=== PATIENT | female | born 1955 | race Caucasian/White ===

== ENCOUNTER → 2016-10-08 | Day surgery (SDC) | payer OTHER ==
[2016-09-21 15:03] VITALS: BMI 34.0
--- NOTE | 2016-09-21 15:40 | PAT Medication Instructions ---
Service Date Sep 21, 2016. Current Home Medication List Acetaminophen Tab (Tylenol), 650 MG PO PRN Aspirin Enteric Coated (Ecotrin Or Generic *), 81 MG PO HS Atorvastatin (Lipitor), 40 MG PO QPM Citalopram (Celexa *), 20 MG PO QAM Diphenhydramine Hcl (Benadryl *), 25 MG PO Q4HR PRN Hydrochlorothiazide (Hctz), 12.5 4XWK Isosorbide Mononitrate Ext Rel (Imdur Ext Rel), 30 MG PO QAM Loratadine (Claritin), 10 MG PO PRN Lorazepam (Ativan *), 0.5 MG PO Q4HR PRN Losartan Potassium (Cozaar *), 100 MG PO QAM Meloxicam (Mobic), 15 MG PO QAM Metoprolol Tartrate (Metoprolol), 25 MG PO BID Nitroglycerin (Nitrostat), 0.4 MG UT PRN Pantoprazole (Protonix), 40 MG PO QAM Warfarin Sod (Jantoven), 10 MG PO 3XWEEK Warfarin Sod (Jantoven), 5 MG PO 4X WEEK Medication Instructions For Your Scheduled Surgery Nitroglycerin (Nitrostat), 0.4 MG UT PRN (if needed) Warfarin Sod (Jantoven), (patient will get instructions from [facility]) - Hold the following medications 7-10 days prior to surgery per surgeon instructions: Meloxicam (Mobic), 15 MG PO QAM - Hold the following medications the morning of surgery: Losartan Potassium (Cozaar *), 100 MG PO QAM Loratadine (Claritin), 10 MG PO PRN Hydrochlorothiazide (Hctz), 12.5 4XWK Diphenhydramine Hcl (Benadryl *), 25 MG PO Q4HR PRN - Take the following medications the morning of surgery with a sip of water: Pantoprazole (Protonix), 40 MG PO QAM Metoprolol Tartrate (Metoprolol), 25 MG PO BID Lorazepam (Ativan *), 0.5 MG PO Q4HR PRN Isosorbide Mononitrate Ext Rel (Imdur Ext Rel), 30 MG PO QAM Acetaminophen Tab (Tylenol), 650 MG PO PRN (if needed) Citalopram (Celexa *), 20 MG PO QAM - Take the following medications as scheduled the night before surgery: Metoprolol Tartrate (Metoprolol), 25 MG PO BID Lorazepam (Ativan *), 0.5 MG PO Q4HR PRN Acetaminophen Tab (Tylenol), 650 MG PO PRN Diphenhydramine Hcl (Benadryl *), 25 MG PO Q4HR PRN Atorvastatin (Lipitor), 40 MG PO QPM Aspirin Enteric Coated (Ecotrin Or Generic *), 81 MG PO HS If you have any questions please call us at [phone] or [phone] ( Tami) or [phone]
[2016-09-21 16:01] LABS: BASO % 0.5 %; BASO ABS # 0.02 K/uL (0-0.2); COMPLETE YES; EOS % 1.6 %; IG% 0.3 %; LYMPH % 31.2 %; LYMPH ABS # 1.19 K/uL (1.2-3.4); MEAN CELL VOLUME 91.1 fL (80-100); MEAN CORPUSCULAR HEMOGLOBIN 30.5 pg (25-34); MEAN CORPUSCULAR HGB CONC 33.4 g/dl (32-36); MEAN PLATELET VOLUME 11.8 fL (7.4-10.4); MONO % 9.9 %; NEUT % 56.5 %; PLATELET COUNT 226 K/uL (130-400); RED BLOOD COUNT 4.17 M/uL (4.2-5.4); WHITE BLOOD COUNT 3.82 K/uL (4.8-10.8)
[2016-09-21 16:20] LABS: BUN/CREATININE RATIO 20.9 (10-20); CALCIUM 9.1 mg/dl (8.5-10.1); CREATININE 0.77 mg/dl (0.60-1.20); INR 1.9 (0.9-1.1); PARTIAL THROMBOPLASTIN RATIO 1.2; POTASSIUM 4.1 mmol/L (3.5-5.1); PROTHROMBIN TIME (PATIENT) 21.1 SECONDS (9.0-12.0)
--- NOTE | 2016-10-07 14:15 | HISTORY & PHYSICAL EXAMINATION ---
DATE OF ADMISSION: 10/08/2016 CHIEF COMPLAINT: Lateral meniscal tear of the right knee. HISTORY OF PRESENT ILLNESS: Viola is a 61-year-old female who has been dealing with a chronic right knee pain. MRI shows some osteoarthritis as well as a lateral meniscal tear. After failing extensive conservative treatment including injections and physical therapy, she elected to proceed with arthroscopy. She understands all the risks, benefits, alternatives to the procedure and has elected to proceed. PAST MEDICAL HISTORY: Significant for heart disease, hyperlipidemia, and hypertension. MEDICATIONS: Include metoprolol, Celexa, isosorbide, Coumadin, Protonix, losartan, Mobic, hydrochlorothiazide, atorvastatin, nitroglycerin, and a baby aspirin daily. PAST SURGICAL HISTORY: Significant for bilateral shoulder arthroscopies, hysterectomy, hernia repair, and open heart surgery. ALLERGIES: MACROBID. FAMILY HISTORY: Noncontributory. SOCIAL HISTORY: She is , rarely drinks, and is moderately active. REVIEW OF SYSTEMS: She complains of right knee pain. All other pertinent review of systems is negative. PHYSICAL EXAMINATION: GENERAL: She is awake, alert and oriented x3. She is in no apparent distress. She is very pleasant. HEENT: Pupils equal, round and reactive to light. Extraocular motion intact. Oral mucosa is pink and moist. HEART: Regular rate per radial pulse. LUNGS: Nena symmetrically bilaterally with no audible breath sounds. ABDOMEN: Soft, nontender, nondistended. MUSCULOSKELETAL: On physical examination of the right knee, she has good flexion from 0-135 degrees. She has no cruciate or collateral ligament instability. She has tenderness to palpation over the lateral joint line, very mild tenderness over the medial joint line, and painless range of motion of her hip. IMAGING DATA: MRI of the right knee shows a mild lateral compartmental arthritis as well as a tear of the anterior horn of the lateral meniscus. IMPRESSION: Lateral meniscal tear of the right knee. PLAN: We will proceed with a right knee arthroscopy. Postoperatively, she will be placed in a compressive dressing, allowed to be weightbearing as tolerated and discharged to home on oral pain medications.
[~2016-10-08] VITALS: Ht 165.1 cm; Wt 89.0 kg
[~2016-10-08] MED LIST: ACET325T96 PO; ACETAMINOPHEN 500 MG TAB PO SCH; ASPEC81 PO; ATOR-24 PO; ATROPINE SULFATE 0.1 MG/ML 5ML SYR IV PRN; ATV5 PO; BND25X PO; CEFAZOLIN 2000 MG/60 ML D5W 60 ML IV SCH; CLR10 PO; CLX20 PO; CZR50 PO; DEXAMETHASONE SOD INJ 4 MG/ML VIAL ONE; EpHEDrine SULFATE INJ 50 MG/ML AMP ONE; EpINEphrine INJ 1MG/ML AMP 1 MG/ML AMP ONE; FENTANYL CITRATE INJ 50 MCG/1 ML 2 ML VIAL IV PRN; FENTANYL CITRATE INJ 50 MCG/1 ML 2 ML VIAL ONE; HYDR-5688 PO; HYDR12.56; HYDROCODONE/ACETAMOPHEN 5/325MG TAB PO PRN; HYDROmorphone INJ 2 MG/ML SYR/VIAL ONE; ISOS30TA35 PO; KETOROLAC TROMETHAMINE 30 MG/ML VIAL IV. PRN; KETOROLAC TROMETHAMINE 30 MG/ML VIAL ONE; LABETALOL HCL IV 5 MG/ML 20ML IV PRN; LACTATED RINGER'S 1000ML 1,000 ML IV SCH; LACTATED RINGER'S 1000ML IV SCH; LIDOCAINE HCL 2% 2 ML VIAL (20MG/ML) ONE; MELO7.5T5 PO; METO25TA31 PO; MIDAZOLAM HCL 1 MG/ML 2ML VIAL ONE; NTRGSL/4 UT; ONDANSETRON INJ 2 MG/ML 2 ML VIAL IV PRN; ONDANSETRON INJ 2 MG/ML 2 ML VIAL ONE; PANT40TA PO; PROPOFOL IV EMULSION 10 MG/ML 20 ML VIAL IV ONE; SODIUM CHLORIDE 0.9% 1000ML 1,000 ML IV SCH; WARF10TA4 PO; WARF5TAB7 PO
[2016-10-08 05:39] VITALS: BP 109/66; PULSE 57; TEMP 36.6; O2SAT 94; Ht 165.1 cm; Wt 89.0 kg
[2016-10-08 06:19] LABS: PROTHROMBIN TIME (PATIENT) 10.6 SECONDS (9.0-12.0)
--- NOTE | 2016-10-08 06:36 | History & Physical Bridge Note ---
H&P Re-Evaluation Bridge Note: I have examined the patient, reviewed the History & Physical and in the interval since the performance of the History & Physical I have noted the following changes of clinical significance: No changes noted
--- NOTE | 2016-10-08 07:37 | Discharge Instructions ---
Discharge Instructions Admission Reason for Admission: Right Knee Osteoarthritis, Right Knee Pain Discharge Discharge Diagnosis / Problem: SAME ABOVE Discharge Goals Goal(s): Decrease discomfort, Improve function Activity Recommendations Activity Limitations: as noted below Lifting Limitations: gradually increase as tolerated Exercise/Sports Limitations: gradually increase as tolerated Shower/Bathe: tomorrow Driving or Machine Use: WHEN OFF OF PAIN MEDICATION . Instructions / Follow-Up Instructions / Follow-Up MEDICATIONS: * Resume previous medications unless instructed otherwise by your surgeon. * Always take pain medication on a full stomach or with food to avoid upset stomach. * Do not drink alcohol or drive while taking narcotics. * Ibuprofen or Tylenol may be taken if narcotic not needed. SPECIAL CARE INSTRUCTIONS: __ None _X_ Keep extremity elevated and iced x 48 hours; apply ice 20-30 minutes 8-10 times/day. May remove at night. _X_ Crutches _X_ May discard when able __ Brace/Post-op shoe __ 24 hrs/day __ Remove at night _X_ Dressing __ Maintain until seen in office, may shower with plastic over site _X_ Remove dressings in 24-48 hours and then may shower _X_ Cover incisions with band-aids after showering __ Do not remove steri-strips Call physician if chills or temperature rises above 102 degrees or pain unrelieved by prescribed pain medications. Office [phone] Current Hospital Diet Patient's current hospital diet: Discharge Diet Recommended Diet: Regular Diet Fluid Restriction: None Procedures Procedures Performed: Right Knee Arthroscopy Lateral Menisectomy Chondroplasty Pending Studies Studies pending at discharge: no Work Instructions Return To Work: after follow-up Medical Emergencies . Who to Call and When: Medical Emergencies: If at any time you feel your situation is an emergency, please call 911 immediately. . Non-Emergent Contact Non-Emergency issues call your: Primary Care Provider Call Non-Emergent contact if: you have a fever, temperature is above 101.5 . "Provider Documentation" section prepared by Km Corbin. VTE Core Measure Inpt VTE Proph given/why not?: Treatment not indicated
--- NOTE | 2016-10-08 08:03 | OPERATIVE REPORT ---
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 POSTOPERATIVE DIAGNOSES: Same. PROCEDURES: Right knee diagnostic arthroscopy with chondroplasty of the distal medial femoral condyle and partial lateral meniscectomy. SURGEON: Dr. Oscar Sagastume. LICENSED PROSTHETIST: Faheem Corbin PA-C, whose assistance was necessary for positioning the leg and helping with instrumentation. ANESTHESIA: General. COMPLICATIONS: None. CONDITION: Stable to PACU. INDICATIONS FOR PROCEDURE: Viola is a pleasant 61-year-old female who presented to my office with right knee pain. MRI and clinical examination were diagnostic for lateral meniscal tear. After failing conservative treatment, she elected to undergo arthroscopy. DESCRIPTION OF PROCEDURE: On 10/08/2016, she arrived at [facility] for the above procedure. She was seen in the preoperative holding area and the operative extremity was identified and signed. She was given a preoperative antibiotic, taken back to the operating room, laid on the table in supine position and put under general anesthesia. The right leg was then prepped and draped in sterile fashion. Time-out was done and the patient and operative extremity was properly identified. A scope was introduced in the lateral parapatellar portal. Diagnostic arthroscopy showed no loose bodies in the suprapatellar pouch. There were very minimal grade 1 chondral changes in the trochlea. There was grade 2 chondral changes and fraying throughout the distal medial femoral condyle. The medial meniscus was intact. A medial parapatellar portal was made under direct visualization. A shaver was used to complete a chondroplasty of the distal medial femoral condyle and remove all the unstable fragments of cartilage. The meniscus was probed and intact. The ACL was intact. The scope was then brought in the lateral compartment. There was a flipped almost bucket handle tear of the lateral meniscus. A shaver was used to remove all the unstable portions of the meniscus. There was no cartilage damage in the lateral compartment. Multiple pictures were taken. The scope was put back into the contralateral portal. Repeat diagnostic arthroscopy showed no additional pathology. Arthroscopic instruments were removed from the knee and the portal sites were closed with 3-0 nylon. She was then given an injection of 30 mL of Naropin with epinephrine and Toradol. She was then placed in a soft compressive dressing, extubated, transferred to a litter and taken to the postanesthesia care unit in stable condition. She tolerated the procedure well. I attest to the content of the Intraoperative Record and any orders documented therein. Any exceptio ns are noted below.
[2016-10-08 08:23] VITALS: BP 106/63; PULSE 63; TEMP 36.4; O2SAT 95
[2016-10-08 08:50] VITALS: BP 111/60; PULSE 66; TEMP 36.4; O2SAT 96
[2016-10-08 09:20] VITALS: BP 104/53; PULSE 63; TEMP 36.4; O2SAT 93
--- NOTE | 2016-10-08 09:56 | Anesthesiology Progress Note ---
Anesthesia Post Op Note Date & Time Oct 08, 2016 at 09:55 Vital Signs Pain Intensity: 3 Vital Signs Past 12 Hours Date Time Temp Pulse Resp B/P Pulse Ox O2 Delivery O2 Flow Rate FiO2 10/08/16 09:20 36.4 63 16 104/53 93 Room Air 10/08/16 08:50 36.4 66 16 111/60 96 Nasal Cannula 2 10/08/16 08:23 36.4 63 12 106/63 95 Room Air 10/08/16 08:15 36.4 120/67 10/08/16 08:12 62 14 10/08/16 08:12 64 14 91 10/08/16 08:10 116/59 10/08/16 08:07 64 13 93 10/08/16 08:07 64 13 10/08/16 08:05 120/69 10/08/16 08:02 62 14 96 10/08/16 08:02 62 14 10/08/16 08:00 117/65 10/08/16 07:57 67 10 89 10/08/16 07:57 69 10 10/08/16 07:55 124/55 10/08/16 07:52 61 12 10/08/16 07:52 61 12 95 10/08/16 07:51 95/49 10/08/16 07:47 63 13 10/08/16 07:47 62 13 97 10/08/16 07:46 123/59 10/08/16 07:42 60 10 10/08/16 07:42 60 10 98 10/08/16 07:40 91/59 10/08/16 07:38 97/49 10/08/16 07:37 55 12 10/08/16 07:37 55 12 81/52 97 10/08/16 07:37 36.0 56 14 81/52 96 Mask 10 10/08/16 05:39 36.6 57 20 109/66 94 Room Air Notes Mental Status: alert / awake / arousable, participated in evaluation Pt Amnestic to Procedure: Yes Nausea / Vomiting: adequately controlled Pain: adequately controlled Airway Patency, RR, SpO2: stable & adequate BP & HR: stable & adequate Hydration State: stable & adequate Anesthetic Complications: no major complications apparent
--- NOTE | 2016-10-08 15:54 | [facility] Post Operative Brief Note ---
Immediate Operative Summary Operative Date Oct 08, 2016. Pre-Operative Diagnosis Lateral meniscal tear of the right knee Post-Operative Diagnosis Lateral meniscal tear of the right knee Procedure(s) Performed Right Knee Arthroscopy Lateral Menisectomy Chondroplasty Surgeon Dr. Oscar Sagastume Research Phlebotomist Surgeon(s) Km Corbin PA-C Estimated Blood Loss 1ml Findings as above Specimens none per surgeon Dr. Oscar Sagastume Complication(s) None Disposition Recovery Room / PACU
== END | disposition home or self-care (01) ==
LOC: C.ACU 05:11
PROVIDERS: ATTEND Orthopaedic Surgery
DX: M23.201 Derangement of unspecified lateral meniscus due to old tear or injury, left knee (principal); M94.261 Chondromalacia, right knee; E78.5 Hyperlipidemia, unspecified; I10 Essential (primary) hypertension; I51.9 Heart disease, unspecified; Z79.01 Long term (current) use of anticoagulants; Z90.710 Acquired absence of both cervix and uterus; Z98.890 Other specified postprocedural states